=== PATIENT | female | born 1945 | race Caucasian/White ===

== ENCOUNTER 2017-04-26 22:26 | Emergency (ER) | payer MEDICARE, OTHER ==
--- NOTE | 2017-04-26 22:51 | ERPHSYRPT ---
- History of Present Illness Time Seen by Provider: 04/26/17 22:35 Source: patient Exam Limitations: no limitations Physician History: 72 y/o female with history of depression brought in by ambulance for suicide attempt by slitting both wrists with an unknown object. Pt arrives with two lacerations across both wrists. Pt arrives very depressed and says she does not want to live. Pt says she is always depressed and is not sure what triggered these actions. Pt denies any homicidal ideation, illicit drug use, alcohol use or hallucinations. Timing/Duration: today Severity of Symptoms-Max: severe Severity of Symptoms-Current: severe Context related to: other (unknown) Associated Symptoms: depressed Previous symptoms: same symptoms as today Allergies/Adverse Reactions: Penicillins Allergy (Verified 04/26/17 22:52) cant take any cousin of penicillin either acetaminophen [From Tylenol] Adverse Reaction (Verified 04/26/17 22:52) Home Medications: Aspirin 81 mg PO UD 12/01/13 [History] Calcium Carbonate/Vitamin D3 [Calcium 600 + Vit D 400 Tablet] 2 each PO DAILY [History] Diazepam [Valium] 2 mg PO TID 12/01/13 [History] Meprobamate 400 mg PO DAILY PRN PRN 12/01/13 [History] Multivitamin/Iron/Folic Acid [Centrum Complete Multivit Tab] 1 each PO DAILY [History] Omeprazole 20 mg PO BID 12/01/13 [History] Levothyroxine Sodium 112 Mcg [Synthroid 112 Mcg] 100 mcg PO DAILY 01/31/15 [History] Desvenlafaxine Succinate [Pristiq ER] 100 mg PO DAILY 05/30/16 [History] Metoprolol Tartrate 25 mg [Lopressor 25MG Tab] 25 mg PO BID 05/30/16 [ History] Cetirizine HCl [Allergy Relief] 10 mg PO DAILY 04/26/17 [History] Lamotrigine [Lamictal] 50 mg PO HS 04/26/17 [History] Methylphenidate 5 mg [Ritalin 5 MG] 10 mg PO BID 04/26/17 [History] Tramadol HCl 50 mg [Ultram 50 mg] 50 mg PO Q4-6HPRN PRN 04/26/17 [History] Hx Tetanus, Diphtheria Vaccination/Date Given: Yes Hx Influenza Vaccination/Date Given: Yes (02/2014) Hx Pneumococcal Vaccination/Date Given: Yes - Past Medical History Pertinent Past Medical History: Yes Neurological History: No Pertinent History ENT History: No Pertinent History Cardiac History: Arrhythmia Respiratory History: No Pertinent History Endocrine Medical History: Hypothyroidism Musculoskeletal History: Other GI Medical History: Hernia History: No Pertinent History Psycho-Social History: Anxiety, Depression, Other Female Reproductive Disorders: No Pertinent History Other Medical History: Hiatal hernia. 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,,pt reports suicide attempt after back surgery related to possible anesthetic reaction - Social History Smoking Status: Never smoker Exposure to second hand smoke: No Drug Use: none Patient Lives Alone: No - Review of Systems Constitutional: No Fever, No Chills Eyes: No Symptoms Ears, Nose, & Throat: No Symptoms Respiratory: No Cough, No Dyspnea Cardiac: No Chest Pain, No Edema, No Syncope Abdominal/Gastrointestinal: No Abdominal Pain, No Nausea, No Vomiting, No Diarrhea Genitourinary Symptoms: No Dysuria Musculoskeletal: No Back Pain, No Neck Pain Skin: No Rash Neurological: No Dizziness, No Focal Weakness, No Sensory Changes Psychological: No Symptoms, Depression, Suicidal Ideations, Emotional Lability Endocrine: No Symptoms All Other Systems: Reviewed and Negative - Nursing Vital Signs Nursing Vital Signs: Initial Vital Signs Temperature 97.8 F 04/26/17 22:37 Pulse Rate 85 04/26/17 22:37 Respiratory Rate 18 04/26/17 22:37 Blood Pressure 145/85 04/26/17 22:37 O2 Sat by Pulse Oximetry 97 04/26/17 22:37 Pain Scale Pain Intensity 0 - Physical Exam General Appearance: other (flat affect) Eyes, Ears, Nose, Throat Exam: normal ENT inspection, moist mucous membranes Neck Exam: normal inspection, non-tender, supple Respiratory Exam: normal breath sounds, lungs clear, No respiratory distress Cardiovascular Exam: regular rate/rhythm, No edema Gastrointestinal/Abdominal Exam: soft, No tenderness, No distention Extremities Exam: normal inspection, normal range of motion, No evidence of injury, No edema Current Suicidality: denies suicide plan Neurological Exam: alert, rat farmer II-XII nml as tested, oriented x 3 Appearance: disheveled Skin Exam: normal color, warm, dry, No rash Procedures - Laceration/Wound Repair Left Upper Anterior Proximal Volar Wrist Wound Location: Left, Right Wound Length (cm): 6 Wound's Depth, Shape: superficial Wound Explored: clean Irrigated: Yes Hibiclens Prep: Yes Anesthesia: local, 1% Lidocaine Volume Anesthetic (ccs): 20 Wound Debrided: moderate Wound Repaired With: sutures Suture Size/Type: 3-0, ethilon Number of Sutures: 16 Layer Closure?: Yes Sterile Dressing Applied?: Yes - Course Nursing assessment & vital signs reviewed: Yes Ordered Tests: Active Orders 24 hr Category Date Time Status ACETAMINOPHEN Stat Lab 04/26/17 22:56 Completed CBC W DIFF Stat Lab 04/26/17 22:56 Completed CMP Stat Lab 04/26/17 22:56 Completed ETHYL ALCOHOL Stat Lab 04/26/17 22:56 Completed SALICYLATE Stat Lab 04/26/17 22:56 Completed Medication Summary Discontinued Medications Generic Name Dose Route Start Last Admin Trade Name Freq PRN Reason Stop Dose Admin Bacitracin 0.9 gm 04/26/17 23:02 04/27/17 02:28 Baciguent Packet TP 04/26/17 23:03 0.9 gm STAT ONE Administration Bacitracin Confirm 04/27/17 03:24 Baciguent Packet Administered 04/27/17 03:25 Dose 1 gm .ROUTE .STK-MED ONE Diphenhydramine HCl 25 mg 04/27/17 01:25 04/27/17 01:28 Benadryl 25 Mg Capsule PO 04/27/17 01:26 25 mg STAT ONE Administration Diphenhydramine HCl Confirm 04/27/17 01:27 Benadryl 25 Mg Capsule Administered 04/27/17 01:28 Dose 25 mg .ROUTE .STK-MED ONE Lidocaine HCl 5 ml 04/26/17 23:02 04/27/17 03:15 Xylocaine 1% Hcl 20 Ml Mdv IJ 04/26/17 23:03 5 ml STAT ONE Administration Lidocaine HCl Confirm 04/26/17 23:08 Xylocaine 1% Hcl 20 Ml Mdv Administered 04/26/17 23:09 Dose 5 ml .ROUTE .STK-MED ONE Lab/Rad Data: Laboratory Result Diagrams 04/26/17 22:56 04/26/17 22:56 Laboratory Results 04/26/17 04/26/17 04/26/17 Range/Units 22:56 22:56 01:01 WBC 12.5 H (4.0-10.5) K/mm3 RBC 4.01 L (4.1-5.4) M/mm3 Hgb 12.0 (12.0-16.0) gm/dl Hct 35.6 (35-47) % MCV 88.8 (78-100) fl MCH 29.9 (26-32) pg MCHC 33.7 (32-36) g/dl RDW 14.7 H (11.5-14.0) % Plt Count 247 (150-450) K/mm3 MPV 9.4 (6-9.5) fl Gran % 76.6 H (36.0-66.0) % Lymphocytes % 17.0 L (24.0-44.0) % Monocytes % 6.1 (0.0-12.0) % Eosinophils % 0.2 (0.00-5.0) % Basophils % 0.1 (0.0-0.4) % Basophils # 0.01 (0-0.4) Sodium 128 L (136-145) mEq/L Potassium 3.4 L (3.5-5.1) mEq/L Chloride 93 L (98-107) mEq/L Carbon Dioxide 24.8 (21-32) mEq/L Anion Gap 13.5 (5-15) MEQ/L BUN 13 (9-20) mg/dL Creatinine 1.00 (0.55-1.30) mg/dl Estimated GFR 58 ML/MIN Glucose 110 (70-110) MG/DL Calcium 8.9 (8.5-10.1) mg/dL Total Bilirubin 0.20 (0.2-1.0) mg/dL AST 22 (15-37) U/L ALT 30 (12-78) U/L Alkaline Phosphatase 83 (46-116) U/L Serum Total Protein 7.1 (6.4-8.2) gm/dL Albumin 3.5 (3.4-5.0) g/dL Ur Collection Type Urine Color (YELLOW) Urine Appearance (CLEAR) Urine pH (5-6) Ur Specific Bude (1.005-1.025) Urine Protein (Negative) Urine Ketones (NEGATIVE) Urine Blood (0-5) Jamey/ul Urine Nitrite (NEGATIVE) Urine Bilirubin (NEGATIVE) Urine Urobilinogen (0-1) mg/dL Ur Leukocyte Esterase (NEGATIVE) Urine Microscopic RBC (0-2) /HPF Urine Microscopic WBC (0-5) /HPF Ur Epithelial Cells (FEW) /HPF Urine Bacteria (NEGATIVE) /HPF Urine Mucus (NEGATIVE) /HPF Urine Culture Reflexed (NO) Urine Glucose (NEGATIVE) mg/dL Salicylates 6.0 (2.8-20.0) mg/dl Urine Opiates Level NEG. (NEGATIVE) Ur Methadone NEG. (NEGATIVE) Acetaminophen < 2.0 L (10-30) ug/ml Urine Barbiturates NEG. (NEGATIVE) Ur Phencyclidine (PCP) NEG. (NEGATIVE) Urine Amphetamine NEG. (NEGATIVE) U Benzodiazepine Level POS. (NEGATIVE) Urine Cocaine NEG. (NEGATIVE) Urine Marijuana (THC) NEG. (NEGATIVE) Ethyl Alcohol < 0.010 (0.00-0.01) % Specimen Received 04/26/17 Range/Units 01:01 WBC (4.0-10.5) K/mm3 RBC (4.1-5.4) M/mm3 Hgb (12.0-16.0) gm/dl Hct (35-47) % MCV (78-100) fl MCH (26-32) pg MCHC (32-36) g/dl RDW (11.5-14.0) % Plt Count (150-450) K/mm3 MPV (6-9.5) fl Gran % (36.0-66.0) % Lymphocytes % (24.0-44.0) % Monocytes % (0.0-12.0) % Eosinophils % (0.00-5.0) % Basophils % (0.0-0.4) % Basophils # (0-0.4) Sodium (136-145) mEq/L Potassium (3.5-5.1) mEq/L Chloride (98-107) mEq/L Carbon Dioxide (21-32) mEq/L Anion Gap (5-15) MEQ/L BUN (9-20) mg/dL Creatinine (0.55-1.30) mg/dl Estimated GFR ML/MIN Glucose (70-110) MG/DL Calcium (8.5-10.1) mg/dL Total Bilirubin (0.2-1.0) mg/dL AST (15-37) U/L ALT (12-78) U/L Alkaline Phosphatase (46-116) U/L Serum Total Protein (6.4-8.2) gm/dL Albumin (3.4-5.0) g/dL Ur Collection Type VOID Urine Color YELLOW (YELLOW) Urine Appearance CLEAR (CLEAR) Urine pH 5.0 (5-6) Ur Specific Bude 1.020 (1.005-1.025) Urine Protein TRACE (Negative) Urine Ketones NEGATIVE (NEGATIVE) Urine Blood 250 (0-5) Jamey/ul Urine Nitrite NEGATIVE (NEGATIVE) Urine Bilirubin NEGATIVE (NEGATIVE) Urine Urobilinogen NORMAL (0-1) mg/dL Ur Leukocyte Esterase 2+ (NEGATIVE) Urine Microscopic RBC 5-10 (0-2) /HPF Urine Microscopic WBC 15-25 (0-5) /HPF Ur Epithelial Cells MANY (FEW) /HPF Urine Bacteria FEW (NEGATIVE) /HPF Urine Mucus MODERATE (NEGATIVE) /HPF Urine Culture Reflexed YES (NO) Urine Glucose NEGATIVE (NEGATIVE) mg/dL Salicylates (2.8-20.0) mg/dl Urine Opiates Level (NEGATIVE) Ur Methadone (NEGATIVE) Acetaminophen (10-30) ug/ml Urine Barbiturates (NEGATIVE) Ur Phencyclidine (PCP) (NEGATIVE) Urine Amphetamine (NEGATIVE) U Benzodiazepine Level (NEGATIVE) Urine Cocaine (NEGATIVE) Urine Marijuana (THC) (NEGATIVE) Ethyl Alcohol (0.00-0.01) % Specimen Received 04/27/170 - Progress Progress: improved Progress Note: 04/26/17 23:46 Pt has been medically cleared - Departure Time of Disposition: 07:00 Departure Disposition: Transfer Clinical Impression: Suicide attempt Condition: Stable Critical Care Time: No Referrals: SAKINA HERNÁNDEZ [Primary Care Provider] -
[2017-04-26] MEDS ORDERED: BACIGUENT PACKET TP ONE (23:02)
[2017-04-26] MEDS ORDERED: XYLOCAINE 1% HCL 20 ML MDV IJ ONE (23:02)
[2017-04-26] MEDS ORDERED: XYLOCAINE 1% HCL 20 ML MDV ONE (23:08)
[2017-04-26 23:28] LABS: ALBUMIN 3.5 g/dL (3.4-5.0); ALKALINE PHOSPHATASE 83 U/L (46-116); ANION GAP 13.5 MEQ/L (5-15); BLOOD UREA NITROGEN 13 mg/dL (9-20); CHLORIDE 93 mEq/L (98-107); Carbon Dioxide 24.8 mEq/L (21-32); Glucose 110 MG/DL (70-110); Potassium 3.4 mEq/L (3.5-5.1); SGOT/AST 22 U/L (15-37); SGPT/ALT 30 U/L (12-78); SODIUM 128 mEq/L (136-145); Total Protein 7.1 gm/dL (6.4-8.2)
[2017-04-26 23:35] LABS: ACETAMINOPHEN < 2.0 ug/ml (10-30); ETHYL ALCOHOL < 0.010 % (0.00-0.01)
[2017-04-26 23:38] LABS: BASOPHIL % 0.1 % (0.0-0.4); Eosinophil % 0.2 % (0.00-5.0); Granulocytes % 76.6 % (36.0-66.0); Mean Cell Volume 88.8 fl (78-100); Mean Corpuscular Hemoglobin 29.9 pg (26-32); Mean Platelet Volume 9.4 fl (6-9.5); Monocytes % 6.1 % (0.0-12.0); Platelet Count 247 K/mm3 (150-450); Red Blood Count 4.01 M/mm3 (4.1-5.4); Red Cell Distribution Width 14.7 % (11.5-14.0); White Blood Count 12.5 K/mm3 (4.0-10.5)
[2017-04-27] MEDS ORDERED: BENADRYL 25 MG CAPSULE PO ONE (01:25)
[2017-04-27] MEDS ORDERED: BENADRYL 25 MG CAPSULE ONE (01:27)
[2017-04-27 01:29] LABS: Bilirubin NEGATIVE (NEGATIVE); Blood 250 Ery/ul (0-5); COMPLETE URINE MICROSCOPIC? YES; Collection Type VOID; Glucose NEGATIVE (NEGATIVE); Leukocyte Esterase 2+ (NEGATIVE)
[2017-04-27 01:30] LABS: Bacteria FEW /HPF (NEGATIVE); Epithelial Cells MANY /HPF (FEW); Mucus MODERATE /HPF (NEGATIVE); WBC 15-25 /HPF (0-5)
[2017-04-27 01:31] LABS: ADD URINE CULTURE? YES (NO)
[2017-04-27] MEDS ORDERED: BACIGUENT PACKET ONE (03:24)
[2017-04-27 05:51] VITALS: BP 133/81; PULSE 85; O2SAT 97
== END 2017-04-27 06:15 | disposition short-term general hospital (02) ==
LOC: ED 22:26
PROC: 0HQDXZZ Repair Right Lower Arm Skin, External Approach (ICD-10-PCS; principal; 2017-04-27)
PROC: 0HQDXZZ Repair Right Lower Arm Skin, External Approach (ICD-10-PCS; 2017-04-27)
DX: S61.512A Laceration without foreign body of left wrist, initial encounter (principal); S61.511A Laceration without foreign body of right wrist, initial encounter; X78.8XXA Intentional self-harm by other sharp object, initial encounter
CPT/HCPCS: 12002 ×3; 99285; 81000; 36415; 80307 ×2; 85025; 80053; 87086; G0481 ×2; A9270-GY